=== PATIENT | male | born 1985 | race Caucasian/White ===

== ENCOUNTER 2017-06-02 10:59 | Emergency (ER) | payer OTHER ==
[~2017-06-02] VITALS: Ht 180.3 cm; Wt 63.5 kg
--- NOTE | ~2017-06-02 | EKG ---
[address] [address] ELECTROCARDIOGRAM REPORT Name: NAYELI BALDERAS Room #: [id number] Admission: 06/02/17 Attend Phys: Discharge: 06/02/17 Date of : 85 Report #: [id number] THIS REPORT FOR: //name// [facility] ED Test Date: 2017-06-02 Test Time: 11:09:42 Pat Name: NAYELI BALDERAS Department: Room: Gender: Slps: KOLE : 1985 Requested By: Memo Nobles Order Number: [id number] MD: Bentley Jauregui Measurements Intervals [place] Rate: 93 P: 78 [place]: 155 QRS: 101 QRSD: 98 T: 50 QT: 341 QTc: 425 Interpretive Statements Sinus rhythm Right axis deviation ST elev, probable normal early repol pattern No previous ECG available for comparison Electronically Signed On 06-02-2017 17:29:19 DICTAPHONE TECHNICIAN by Bentley Jauregui [email or web address] <ELECTRONICALLY SIGNED> By: Bentley Jauregui MD 06/02/17 1729 [id number] MD KEVIN Pete
[2017-06-02 11:20] LABS: ABSOLUTE NEUTROPHILS 2.5 thou/uL (1.4-8.2); BASOPHILS 0.5 % (0.0-2.0); EOSINOPHILS 5.5 % (0.0-3.0); HEMATOCRIT 38.6 % (42.0-52.0); HEMOGLOBIN 13.2 gm/dL (14.0-18.0); LYMPHOCYTES 39.6 % (24.0-44.0); MCH 30.6 pg (26.0-34.0); MCHC 34.3 g/dL (28.0-37.0); MCV 89.3 fL (80.0-100.0); MONOCYTES 8.5 % (1.0-8.0); PLATELET COUNT 242 thou/uL (150-400); POLYS 45.9 % (36.0-66.0); RBC 4.32 mil/uL (4.50-6.00); WBC 5.3 thou/uL (4.0-11.0)
[2017-06-02 11:31] LABS: ANION GAP 9 mmol/L (7-16); BUN 8 mg/dL (7-18); CALCIUM 8.5 mg/dL (8.5-10.1); CHLORIDE 104 mmol/L (98-107); CO2 25 mmol/L (21-32); CREATININE 0.8 mg/dL (0.7-1.3); GLUCOSE 119 mg/dL (74-106); POTASSIUM 3.6 mmol/L (3.5-5.1); SODIUM 138 mmol/L (136-145)
[2017-06-02 11:36] LABS: ALBUMIN 3.1 g/dL (3.4-5.0); SALICYLATE < 2.8 mg/dL (2.8-20.0); SGOT 22 U/L (15-37); SGPT 38 U/L (30-65); TOTAL BILIRUBIN 0.2 mg/dL (<0.1-1.0); TOTAL PROTEIN 6.5 g/dL (6.4-8.2); TROPONIN-I < 0.04 ng/mL (<0.06)
== END 2017-06-02 13:04 | disposition home or self-care (01) ==
LOC: ER 10:59
PROVIDERS: Physician Assistant
DX: R06.02 Shortness of breath (principal); F19.10 Other psychoactive substance abuse, uncomplicated; F17.210 Nicotine dependence, cigarettes, uncomplicated; Z71.6 Tobacco abuse counseling

== ENCOUNTER 2018-03-03 05:28 | Emergency (ER) | payer OTHER ==
[~2018-03-03] VITALS: Ht 180.3 cm; Wt 68.0 kg
[2018-03-03 05:30] VITALS: BP 137/95
[2018-03-03] MEDS ORDERED: BUSPIRONE HCL10 MG PO (05:40)
[2018-03-03] MEDS ORDERED: PROZAC20 MG PO (05:40)
[2018-03-03] MEDS ORDERED: REMERON30 MG PO (05:41)
== END 2018-03-03 06:12 | disposition home or self-care (01) ==
LOC: ER 05:28
DX: R53.1 Weakness (principal); F17.210 Nicotine dependence, cigarettes, uncomplicated; Z59.0 Homelessness

== ENCOUNTER 2020-05-02 06:25 | Emergency (ER) | payer OTHER ==
[~2020-05-02] VITALS: Ht 182.9 cm; Wt 86.2 kg
[~2020-05-02 06:25] MED LIST: BUSPIRONE HCL10 MG PO; PROZAC20 MG PO; REMERON30 MG PO
[2020-05-02 06:26] VITALS: BP 136/95
[2020-05-02 07:03] LABS: ABSOLUTE NEUTROPHILS 4.7 thou/uL (1.4-8.2); BASOPHILS 0.5 % (0.0-2.0); EOSINOPHILS 7.4 % (0.0-3.0); HEMATOCRIT 46.4 % (42.0-52.0); HEMOGLOBIN 16.4 gm/dL (14.0-18.0); LYMPHOCYTES 22.5 % (24.0-44.0); MCH 31.7 pg (26.0-34.0); MCHC 35.3 g/dL (28.0-37.0); MCV 89.7 fL (80.0-100.0); MONOCYTES 6.7 % (1.0-8.0); PLATELET COUNT 233 thou/uL (150-400); POLYS 62.9 % (36.0-66.0); RBC 5.17 mil/uL (4.50-6.00); RDW 13.6 % (10.5-14.5); WBC 7.4 thou/uL (4.0-11.0)
[2020-05-02 07:15] LABS: CALCIUM 9.3 mg/dL (8.5-10.1); CREATININE 0.9 mg/dL (0.7-1.3); POTASSIUM 3.6 mmol/L (3.5-5.1)
[2020-05-02 07:23] LABS: ALBUMIN 3.8 g/dL (3.4-5.0); DIRECT BILIRUBIN 0.1 mg/dL (<0.1-0.2); TOTAL BILIRUBIN 0.6 mg/dL (0.2-1.0)
[2020-05-02 09:24] LABS: URINE BILIRUBIN NEGATIVE (Negative); URINE BLOOD 3+ (Negative); URINE CLARITY CLEAR; URINE COLOR YELLOW; URINE GLUCOSE-RANDOM* NEGATIVE (Negative); URINE KETONES NEGATIVE (Negative); URINE LEUKOCYTES-REFLEX TRACE (Negative); URINE NITRITE-REFLEX NEGATIVE (Negative); URINE PROTEIN (DIPSTICK) NEGATIVE (Negative); URINE SPECIFIC GRAVITY 1.015 (1.005-1.035); URINE UROBILINOGEN 0.2 E.U./dl (0.2-1.0)
[2020-05-02 09:35] LABS: CASTS None Seen /LPF (None Seen); CRYSTALS None Seen /LPF (None Seen); SQUAMOUS None Seen /LPF (0-3)
[2020-05-02 09:36] LABS: URINE WBC-REFLEX 6-15 Few /HPF (0-5)
[2020-05-02 09:37] LABS: BACTERIA-REFLEX 1-9 Few /HPF (None Seen)
[2020-05-02] MEDS ORDERED: MOBIC15 MG PO (09:53)
== END 2020-05-02 10:51 | disposition home or self-care (01) ==
LOC: ER 06:25
PROVIDERS: Emergency Medicine
DX: E86.0 Dehydration (principal); R10.9 Unspecified abdominal pain; R33.9 Retention of urine, unspecified; M54.5 Low back pain; F32.9 Major depressive disorder, single episode, unspecified; F41.9 Anxiety disorder, unspecified; F17.210 Nicotine dependence, cigarettes, uncomplicated; Z79.899 Other long term (current) drug therapy